=== PATIENT | female | born 1950 | race Caucasian/White ===

== ENCOUNTER 2018-07-26 10:31 | Emergency (ER) | payer MEDICARE, OTHER ==
[~2018-07-26] VITALS: Ht 167.6 cm; Wt 90.0 kg
[~2018-07-26 10:31] MED LIST: DIAZ2TAB PO; HYDR-4383 PO; ZOF4T PO
[2018-07-26 11:30] VITALS: BP 147/91
[2018-07-26] MEDS ORDERED: TRAM50TA2 PO (14:31)
== END 2018-07-26 15:07 | disposition home or self-care (01) ==
LOC: ER 10:32
DX: S83.92XA Sprain of unspecified site of left knee, initial encounter (principal); G89.29 Other chronic pain; W18.40XA Slipping, tripping and stumbling without falling, unspecified, initial encounter; Y93.01 Activity, walking, marching and hiking; Y92.89 Other specified places as the place of occurrence of the external cause; Y99.8 Other external cause status
CPT/HCPCS: 29505; 73560; 99283

== ENCOUNTER 2023-12-22 21:13 | Inpatient (IN) | payer MEDICARE, OTHER ==
[~2023-12-22] VITALS: Ht 165.1 cm; Wt 81.8 kg
[~2023-12-22 21:13] MED LIST changes: +ASPI-1 PO; +CHOL10002 PO; +CYAN100097 PO; +DENO60DI SQ; -DIAZ2TAB PO; +DOCU100T9 PO; +FAMO-128 PO; -HYDR-4383 PO; +LEVO175T2 PO; +VITA200C5 PO; -ZOF4T PO
[2023-12-22] MEDS ORDERED: morphine 4 MG/ML inj SYRINge IM ONE (23:10)
[2023-12-22] MEDS ORDERED: ondansetron 4mg rapidly disintigrating tab PO ONE (23:10)
[2023-12-22] MEDS: ondansetron/PF 4mg/2ml inj IV ONE (23:36)
[2023-12-22] MEDS: morphine 4 MG/ML inj SYRINge IV ONE (23:37)
[2023-12-22] MEDS: HYDROcodone/acetaminophen 5mg/325mg tablet PO ONE (23:48)
[2023-12-22] MEDS: ondansetron 4mg rapidly disintigrating tab PO ONE (23:48)
[2023-12-23 01:55] LABS: BASOPHILS % (AUTO) 0.3 % (0-1); EOSINOPHILS # (AUTO) 0.1 X10'3 (0-0.9); EOSINOPHILS % (AUTO) 1.3 % (0-6); HEMATOCRIT 30.5 % (35.0-45.0); LYMPHOCYTES # (AUTO) 1.9 X10'3 (1.1-4.8); LYMPHOCYTES % (AUTO) 38.3 % (21-51); MEAN CORPUSCULAR HEMOGLOBIN 32.1 PG (27.0-31.0); MEAN CORPUSCULAR HGB CONC 32.9 g/dL (33.0-36.5); MEAN CORPUSCULAR VOLUME 97.8 FL (78-98); MEAN PLATELET VOLUME 7.9 FL (7.4-10.4); MONOCYTES # (AUTO) 0.5 X10'3 (0-0.9); MONOCYTES % (AUTO) 9.5 % (2-12); NEUTROPHILS # (AUTO) 2.6 X10'3 (1.8-7.7); NEUTROPHILS % (AUTO) 50.6 % (42-75); PLATELET COUNT 239 X10'3 (140-440); RED BLOOD COUNT 3.12 X10'6 (4.20-5.60); RED CELL DISTRIBUTION WIDTH 14.2 % (11.5-14.5); WHITE BLOOD COUNT 5.1 X10'3 (4.5-11.0)
[2023-12-23 02:02] LABS: ALANINE AMINOTRANSFERASE 20 U/L (12-78); ALBUMIN 2.7 G/DL (3.4-5.0); ALBUMIN/GLOBULIN RATIO 0.7 (1.1-1.5); ALKALINE PHOSPHATASE 51 IU/L (46-116); ANION GAP 8 (8-16); ASPARTATE AMINO TRANSFERASE 22 U/L (10-37); BILIRUBIN,TOTAL 0.9 MG/DL (0.1-1.0); BLOOD UREA NITROGEN 19 MG/DL (7-18); BUN/CREATININE RATIO 30.2 (10.0-20.0); CHLORIDE 110 MMOL/L (99-107); CREATININE 0.63 MG/DL (0.40-0.90); GLUCOSE 87 MG/DL (70-104); POTASSIUM 3.2 MMOL/L (3.5-5.1); SODIUM 143 MMOL/L (135-145); TOTAL CARBON DIOXIDE 24.9 MMOL/L (24-32); TOTAL PROTEIN 6.7 G/DL (6.4-8.2); eCRCL 69 ML/MIN; eGFR > 90 ML/MIN
[2023-12-23] MEDS ORDERED: potassium Cl 20 mEq SR tablet PO PRN (02:05)
[2023-12-23] MEDS ORDERED: mag hydrox/Alum hydrox/simeth 30ml oral suspension PO PRN (02:05)
[2023-12-23] MEDS ORDERED: magnesium sulf-water 4G/100mL 100 ML IV PRN (02:05)
[2023-12-23] MEDS ORDERED: magnesium Cl slow-release 64mg tablet PO PRN (02:05)
[2023-12-23] MEDS ORDERED: acetaminophen 325mg tablet PO PRN (02:05)
[2023-12-23] MEDS ORDERED: potassium Cl 40MEQ/1/2NS 520ml 520 ML IV PRN (02:05)
[2023-12-23] MEDS ORDERED: ondansetron/PF 4mg/2ml inj IV PRN (02:05)
[2023-12-23] MEDS ORDERED: HYDROmorphone/PF 0.2 MG/ML SYRINGE IV PRN (02:05)
[2023-12-23] MEDS ORDERED: magnesium sulf-water 2g/50mL 50 ML IV PRN (02:05)
[2023-12-23] MEDS ORDERED: magnesium hydroxide 30ml (MOM) UD suspension PO PRN (02:05)
[2023-12-23 03:49] LABS: % IRON SATURATION 13 % (11-46); IRON 26 UG/DL (49-151); TOTAL IRON BINDING CAPACITY 199 UG/DL (259-388)
[2023-12-23 04:16] LABS: HEMOGLOBIN A1C 4.4 % (4.5-6.2)
[2023-12-23 04:32] LABS: CHOL/HDL RATIO 1.9 (0.00-4.99); CHOLESTEROL 111 MG/DL (0-200); HDL CHOLESTEROL 57 MG/DL (35-60); LDL CHOLESTEROL 48 MG/DL (50-100); MAGNESIUM 1.8 MG/DL (1.5-2.4); POTASSIUM 3.2 MMOL/L (3.5-5.1); THYROID STIMULATING HORMONE 1.15 ulU/ml (0.34-4.50); TRIGLYCERIDES 58 MG/DL (20-135)
[2023-12-23] MEDS: levoTHYROXINE 112mcg tablet PO SCH (07:13)
[2023-12-23] MEDS: levoTHYROXINE 25mcg tablet PO SCH (07:13)
[2023-12-23] MEDS: HYDROmorphone inj. 0.5 MG/0.5 ML DISP.SYRIN IV PRN (07:31)
[2023-12-23 07:45] VITALS: BP 117/68; PULSE 65; RESP 16; TEMP 98.3; O2SAT 91
[2023-12-23 08:00] VITALS: RESP 18; O2SAT 91
[2023-12-23] MEDS: K and/or MAG REPLACEMENT MC SCH (08:00)
[2023-12-23 10:33] VITALS: BP 114/64; PULSE 64; RESP 18; TEMP 97.4; O2SAT 91
[2023-12-23] MEDS: potassium Cl 20 mEq SR tablet PO PRN (11:28)
[2023-12-23 17:00] VITALS: BP 126/68; PULSE 70; RESP 16; TEMP 98.2; O2SAT 93
[2023-12-23 20:00] VITALS: RESP 16; O2SAT 93
[2023-12-23 22:00] VITALS: BP 100/52; PULSE 70; RESP 16; TEMP 97.2; O2SAT 93
[2023-12-24 05:00] VITALS: BP 92/44; PULSE 66; RESP 18; TEMP 97.4; O2SAT 94
[2023-12-24 06:30] LABS: BASOPHILS % (AUTO) 0.4 % (0-1); EOSINOPHILS # (AUTO) 0.1 X10'3 (0-0.9); EOSINOPHILS % (AUTO) 1.6 % (0-6); HEMATOCRIT 30.4 % (35.0-45.0); LYMPHOCYTES # (AUTO) 1.5 X10'3 (1.1-4.8); LYMPHOCYTES % (AUTO) 31.3 % (21-51); MEAN CORPUSCULAR HEMOGLOBIN 32.4 PG (27.0-31.0); MEAN CORPUSCULAR HGB CONC 32.9 g/dL (33.0-36.5); MEAN CORPUSCULAR VOLUME 98.7 FL (78-98); MEAN PLATELET VOLUME 7.8 FL (7.4-10.4); MONOCYTES # (AUTO) 0.4 X10'3 (0-0.9); NEUTROPHILS # (AUTO) 2.7 X10'3 (1.8-7.7); NEUTROPHILS % (AUTO) 57.7 % (42-75); PLATELET COUNT 230 X10'3 (140-440); RED BLOOD COUNT 3.08 X10'6 (4.20-5.60); WHITE BLOOD COUNT 4.7 X10'3 (4.5-11.0)
[2023-12-24 06:45] LABS: ALANINE AMINOTRANSFERASE 20 U/L (12-78); ALBUMIN 2.5 G/DL (3.4-5.0); ALBUMIN/GLOBULIN RATIO 0.7 (1.1-1.5); ALKALINE PHOSPHATASE 58 IU/L (46-116); ANION GAP 6 (8-16); ASPARTATE AMINO TRANSFERASE 18 U/L (10-37); BILIRUBIN,TOTAL 0.9 MG/DL (0.1-1.0); BLOOD UREA NITROGEN 14 MG/DL (7-18); BUN/CREATININE RATIO 26.4 (10.0-20.0); CALCIUM 7.8 MG/DL (8.5-10.1); CHLORIDE 108 MMOL/L (99-107); CREATININE 0.53 MG/DL (0.40-0.90); GLUCOSE 88 MG/DL (70-104); MAGNESIUM 1.9 MG/DL (1.5-2.4); POTASSIUM 4.2 MMOL/L (3.5-5.1); SODIUM 140 MMOL/L (135-145); TOTAL CARBON DIOXIDE 25.8 MMOL/L (24-32); TOTAL PROTEIN 6.3 G/DL (6.4-8.2); eCRCL 83 ML/MIN; eGFR > 90 ML/MIN
[2023-12-24 07:40] VITALS: RESP 18; O2SAT 94
[2023-12-24 10:00] VITALS: BP 128/56; PULSE 72; RESP 14; TEMP 97.7; O2SAT 96
[2023-12-24] MEDS: HYDROcodone/acetaminophen 5mg/325mg tablet PO PRN (13:23)
[2023-12-24 18:00] VITALS: BP 124/57; PULSE 73; RESP 14; TEMP 97.7; O2SAT 96
[2023-12-24 20:00] VITALS: RESP 18; O2SAT 96
[2023-12-24 22:00] VITALS: BP 125/56; PULSE 77; RESP 15; TEMP 98; O2SAT 95
[2023-12-25 05:57] LABS: BASOPHILS % (AUTO) 0.4 % (0-1); EOSINOPHILS # (AUTO) 0.1 X10'3 (0-0.9); EOSINOPHILS % (AUTO) 1.3 % (0-6); HEMATOCRIT 30.7 % (35.0-45.0); HEMOGLOBIN 10.1 g/dl (12.0-16.0); LYMPHOCYTES # (AUTO) 1.5 X10'3 (1.1-4.8); LYMPHOCYTES % (AUTO) 31.6 % (21-51); MEAN CORPUSCULAR HEMOGLOBIN 32.5 PG (27.0-31.0); MEAN CORPUSCULAR HGB CONC 32.9 g/dL (33.0-36.5); MEAN CORPUSCULAR VOLUME 98.7 FL (78-98); MONOCYTES # (AUTO) 0.5 X10'3 (0-0.9); MONOCYTES % (AUTO) 9.8 % (2-12); NEUTROPHILS # (AUTO) 2.7 X10'3 (1.8-7.7); NEUTROPHILS % (AUTO) 56.9 % (42-75); PLATELET COUNT 226 X10'3 (140-440); RED BLOOD COUNT 3.11 X10'6 (4.20-5.60); RED CELL DISTRIBUTION WIDTH 13.8 % (11.5-14.5); WHITE BLOOD COUNT 4.7 X10'3 (4.5-11.0)
[2023-12-25 06:00] VITALS: BP 112/46; PULSE 71; RESP 14; TEMP 97.6; O2SAT 95
[2023-12-25 06:31] LABS: ALANINE AMINOTRANSFERASE 20 U/L (12-78); ALBUMIN 2.4 G/DL (3.4-5.0); ALBUMIN/GLOBULIN RATIO 0.6 (1.1-1.5); ALKALINE PHOSPHATASE 61 IU/L (46-116); ANION GAP 5 (8-16); ASPARTATE AMINO TRANSFERASE 19 U/L (10-37); BILIRUBIN,TOTAL 0.8 MG/DL (0.1-1.0); BLOOD UREA NITROGEN 15 MG/DL (7-18); BUN/CREATININE RATIO 26.3 (10.0-20.0); CALCIUM 7.8 MG/DL (8.5-10.1); CHLORIDE 109 MMOL/L (99-107); CREATININE 0.57 MG/DL (0.40-0.90); GLUCOSE 92 MG/DL (70-104); POTASSIUM 4.1 MMOL/L (3.5-5.1); SODIUM 141 MMOL/L (135-145); TOTAL CARBON DIOXIDE 26.8 MMOL/L (24-32); TOTAL PROTEIN 6.3 G/DL (6.4-8.2); eCRCL 77 ML/MIN; eGFR > 90 ML/MIN
[2023-12-25 08:00] VITALS: RESP 14; O2SAT 93
[2023-12-25 10:00] VITALS: BP 110/48; PULSE 68; RESP 14; TEMP 97.7; O2SAT 93
[2023-12-25 11:02] VITALS: RESP 16
[2023-12-25] MEDS ORDERED: ACET-1008 PO (12:29)
[2023-12-25] MEDS ORDERED: HYDR-3965 PO (13:07)
== END 2023-12-25 13:28 | disposition home or self-care (01) | DRG 563 ==
LOC: ER 21:13 → ED HOLD 12-23 02:08 → EDBEDREQ 12-23 02:49 → ORTHO 4S 12-23 07:47
PROVIDERS: ADMIT Internal Medicine Critical Care Medicine; ATTEND Internal Medicine
DX: S82.144A Nondisplaced bicondylar fracture of right tibia, initial encounter for closed fracture (principal); E66.9 Obesity, unspecified; G89.29 Other chronic pain; R73.03 Prediabetes; D64.9 Anemia, unspecified; E88.09 Other disorders of plasma-protein metabolism, not elsewhere classified; E83.51 Hypocalcemia; M85.88 Other specified disorders of bone density and structure, other site; R01.1 Cardiac murmur, unspecified; E89.0 Postprocedural hypothyroidism; W01.0XXA Fall on same level from slipping, tripping and stumbling without subsequent striking against object, initial encounter; Z85.850 Personal history of malignant neoplasm of thyroid; Z68.30 Body mass index [BMI] 30.0-30.9, adult; Z90.710 Acquired absence of both cervix and uterus; Z98.84 Bariatric surgery status; Y93.89 Activity, other specified; Y92.89 Other specified places as the place of occurrence of the external cause; Y99.8 Other external cause status; Z90.722 Acquired absence of ovaries, bilateral; Z79.899 Other long term (current) drug therapy; Z79.82 Long term (current) use of aspirin
CPT/HCPCS: 36415; 71045; 73110; 73560; 73590; 73600; 73700; 80053; 80061; 83036; 83540; 83550; 83735; 84132; 84443; 84466; 85025; 87081; 93306; 97116; 97161; 99291; A6449; G0378; J1170

== ENCOUNTER 2024-02-07 09:23 | Inpatient (IN) | payer MEDICARE, OTHER ==
[~2024-02-07] VITALS: Ht 162.6 cm; Wt 74.3 kg
[~2024-02-07 09:23] MED LIST changes: +ACET-1008 PO
--- NOTE | 2024-02-07 09:45 | NUR ---
PT CAME STRAIGHT INTO TRIAGE. POA IS WITH THE PT. CN AWARE OF THE PT. PT PLACED IN 18. NO SITTER ASSIGNED TO THE PT AT THIS TIME. CN AWARE
[2024-02-07 09:50] LABS: BASOPHILS % (AUTO) 0.3 % (0-1); EOSINOPHILS # (AUTO) 0.1 X10'3 (0-0.9); EOSINOPHILS % (AUTO) 0.6 % (0-6); HEMATOCRIT 34.5 % (35.0-45.0); HEMOGLOBIN 11.4 g/dl (12.0-16.0); LYMPHOCYTES # (AUTO) 1.9 X10'3 (1.1-4.8); LYMPHOCYTES % (AUTO) 21.2 % (21-51); MEAN CORPUSCULAR HEMOGLOBIN 32.4 PG (27.0-31.0); MEAN CORPUSCULAR HGB CONC 32.9 g/dL (33.0-36.5); MEAN CORPUSCULAR VOLUME 98.4 FL (78-98); MEAN PLATELET VOLUME 7.6 FL (7.4-10.4); MONOCYTES # (AUTO) 0.6 X10'3 (0-0.9); MONOCYTES % (AUTO) 7.3 % (2-12); NEUTROPHILS # (AUTO) 6.2 X10'3 (1.8-7.7); NEUTROPHILS % (AUTO) 70.6 % (42-75); PLATELET COUNT 236 X10'3 (140-440); RED BLOOD COUNT 3.51 X10'6 (4.20-5.60); RED CELL DISTRIBUTION WIDTH 14.8 % (11.5-14.5); WHITE BLOOD COUNT 8.8 X10'3 (4.5-11.0)
[2024-02-07 10:09] LABS: ALBUMIN 2.7 G/DL (3.4-5.0); ANION GAP 11 (8-16); BLOOD UREA NITROGEN 28 MG/DL (7-18); BUN/CREATININE RATIO 43.1 (10.0-20.0); CALCIUM 8.3 MG/DL (8.5-10.1); CHLORIDE 111 MMOL/L (99-107); CREATININE 0.65 MG/DL (0.40-0.90); GLUCOSE 117 MG/DL (70-104); POTASSIUM 3.4 MMOL/L (3.5-5.1); PRO BRAIN NATRIURETIC PEPTIDE 191 PG/ML (0-450); SODIUM 142 MMOL/L (135-145); TOTAL CARBON DIOXIDE 20.5 MMOL/L (24-32); eCRCL 65 ML/MIN; eGFR 89 ML/MIN
[2024-02-07 10:31] LABS: ALANINE AMINOTRANSFERASE 16 U/L (12-78); ALBUMIN/GLOBULIN RATIO 0.6 (1.1-1.5); ALKALINE PHOSPHATASE 76 IU/L (46-116); ASPARTATE AMINO TRANSFERASE 28 U/L (10-37); BILIRUBIN,TOTAL 0.6 MG/DL (0.1-1.0); MAGNESIUM 1.7 MG/DL (1.5-2.4); TOTAL PROTEIN 7.4 G/DL (6.4-8.2)
[2024-02-07] MEDS: enoxaparin 40mg/0.4ml syringe SUBCUT ONE (10:38)
[2024-02-07] MEDS: normal saline 1000ml 1,000 ML IV SCH (10:39)
[2024-02-07] MEDS: enoxaparin 30mg/0.3ml syringe SUBCUT ONE (10:39)
[2024-02-07 10:43] LABS: BILIRUBIN,DIRECT 0.3 MG/DL (0-0.3)
[2024-02-07] MEDS: atorvastatin 20mg tablet PO SCH (10:46)
[2024-02-07 10:50] LABS: APTT 23 SECONDS (22-32); PROTHROMBIN TIME 10.8 SECONDS (9.0-12.0)
[2024-02-07] MEDS: magnesium sulf-water 2g/50mL 50 ML IV ONE (11:07)
[2024-02-07] MEDS ORDERED: mag hydrox/Alum hydrox/simeth 30ml oral suspension PO PRN (11:35)
[2024-02-07] MEDS ORDERED: potassium Cl 40MEQ/1/2NS 520ml 520 ML IV PRN (11:35)
[2024-02-07] MEDS ORDERED: ondansetron/PF 4mg/2ml inj IV PRN (11:35)
[2024-02-07] MEDS ORDERED: magnesium sulf-water 4G/100mL 100 ML IV PRN (11:35)
[2024-02-07] MEDS ORDERED: magnesium sulf-water 2g/50mL 50 ML IV PRN (11:35)
[2024-02-07] MEDS ORDERED: potassium Cl 20 mEq SR tablet PO PRN (11:35)
[2024-02-07] MEDS ORDERED: morphine 2 MG/ML inj. syringe IV PRN (11:35)
[2024-02-07] MEDS ORDERED: acetaminophen 325mg tablet PO PRN (11:35)
[2024-02-07 12:10] LABS: D-DIMER 5.42 MG/L FEU (0-0.50)
--- NOTE | 2024-02-07 12:23 | NUR ---
ER [id number] [id number] PAGE SENT TO DR THOMAS
[2024-02-07] MEDS ORDERED: heparin 10,000 units/1 ML INJ IV SCH (12:30)
[2024-02-07] MEDS ORDERED: heparin 10,000 units/1 ML INJ IV ONE (12:30)
--- NOTE | 2024-02-07 12:53 | NUR ---
INITIAL HEPARIN DRIP DOSING HEPARIN DRIP PROTOCOL INDICATION: CARDIAC PATIENT WEIGHT(KG): 74.3 KG BASE LINE aPTT: 23 BOLUS X1: 4000 UNIT INFUSION RATE: 900 UNIT/HR (9 ML/HR ) RN NAME: MITCHELL
[2024-02-07] MEDS: heparin 10,000 units/1 ML INJ IV ONE (12:58)
[2024-02-07] MEDS: MESSAGE TO NURSING IV ONE ×2 (13:01→19:30)
[2024-02-07] MEDS: heparin 25,000 UNIT/250ml bag 250 ML IV PRN (13:01)
[2024-02-07 13:43] LABS: BASOPHILS % (AUTO) 0.2 % (0-1); EOSINOPHILS % (AUTO) 0.1 % (0-6); HEMATOCRIT 34.7 % (35.0-45.0); HEMOGLOBIN 11.4 g/dl (12.0-16.0); LYMPHOCYTES # (AUTO) 1.1 X10'3 (1.1-4.8); LYMPHOCYTES % (AUTO) 14.1 % (21-51); MEAN CORPUSCULAR HEMOGLOBIN 32.5 PG (27.0-31.0); MEAN CORPUSCULAR HGB CONC 32.8 g/dL (33.0-36.5); MEAN CORPUSCULAR VOLUME 99.2 FL (78-98); MEAN PLATELET VOLUME 7.9 FL (7.4-10.4); MONOCYTES # (AUTO) 0.5 X10'3 (0-0.9); MONOCYTES % (AUTO) 5.8 % (2-12); NEUTROPHILS # (AUTO) 6.3 X10'3 (1.8-7.7); NEUTROPHILS % (AUTO) 79.8 % (42-75); PLATELET COUNT 257 X10'3 (140-440); RED CELL DISTRIBUTION WIDTH 14.6 % (11.5-14.5); WHITE BLOOD COUNT 7.9 X10'3 (4.5-11.0)
--- NOTE | 2024-02-07 16:56 | NUR ---
Patient in room ED 1. I have received report from Stephanie GUZMAN RN and had the opportunity to ask questions and assume patient care.
[2024-02-07 17:19] VITALS: BP 115/63; PULSE 102; RESP 26; TEMP 98.5; O2SAT 94
[2024-02-07 18:00] VITALS: BP 108/52; PULSE 104; RESP 18; TEMP 97.5; O2SAT 98
--- NOTE | 2024-02-07 18:54 | NUR ---
Problems reprioritized. Patient report given, questions answered & plan of care reviewed with Ramon SCHROEDER.
[2024-02-07] MEDS: K and/or MAG REPLACEMENT MC SCH (19:03)
[2024-02-07] MEDS: potassium Cl 20 mEq SR tablet PO PRN (19:22)
--- NOTE | 2024-02-07 19:26 | NUR ---
REVIEW OF HEPARIN DRIP DOSING HEPARIN DRIP PROTOCOL INDICATION: CARDIAC PATIENT WEIGHT(KG): 74.3KG APTT: 58 TIME COLLECTED: 1824 CURRENT RATE: 900UNITS/HR CHANGE IN INFUSION RATE: NO CHANGE RE- BOLUS: N/A RN NAME: KASSIE REPEAT APTT: 6HRS, KASSIE ORDERED FOR 1AM
[2024-02-07] MEDS ORDERED: heparin, porcine 5000 units/ml vial SQ SCH (20:00)
[2024-02-07] MEDS: acetaminophen 325mg tablet PO PRN (21:39)
[2024-02-07 22:00] VITALS: BP 97/52; PULSE 106; RESP 18; TEMP 98.5; O2SAT 97
[2024-02-08 01:39] LABS: BASOPHILS % (AUTO) 0.2 % (0-1); EOSINOPHILS % (AUTO) 0.4 % (0-6); HEMATOCRIT 31.9 % (35.0-45.0); HEMOGLOBIN 10.5 g/dl (12.0-16.0); LYMPHOCYTES # (AUTO) 1.8 X10'3 (1.1-4.8); LYMPHOCYTES % (AUTO) 24.3 % (21-51); MEAN CORPUSCULAR HEMOGLOBIN 32.6 PG (27.0-31.0); MEAN CORPUSCULAR VOLUME 98.7 FL (78-98); MEAN PLATELET VOLUME 7.9 FL (7.4-10.4); MONOCYTES # (AUTO) 0.6 X10'3 (0-0.9); MONOCYTES % (AUTO) 8.2 % (2-12); NEUTROPHILS % (AUTO) 66.9 % (42-75); PLATELET COUNT 238 X10'3 (140-440); RED BLOOD COUNT 3.23 X10'6 (4.20-5.60); RED CELL DISTRIBUTION WIDTH 14.5 % (11.5-14.5); WHITE BLOOD COUNT 7.4 X10'3 (4.5-11.0)
[2024-02-08 01:55] LABS: ANION GAP 6 (8-16); BLOOD UREA NITROGEN 29 MG/DL (7-18); BUN/CREATININE RATIO 54.7 (10.0-20.0); CALCIUM 7.8 MG/DL (8.5-10.1); CHLORIDE 112 MMOL/L (99-107); CREATININE 0.53 MG/DL (0.40-0.90); GLUCOSE 112 MG/DL (70-104); PHOSPHORUS 3.2 MG/DL (2.3-4.5); POTASSIUM 3.8 MMOL/L (3.5-5.1); SODIUM 141 MMOL/L (135-145); eCRCL 79 ML/MIN; eGFR > 90 ML/MIN
[2024-02-08 01:56] LABS: ALANINE AMINOTRANSFERASE 16 U/L (12-78); ALBUMIN 2.4 G/DL (3.4-5.0); ALBUMIN/GLOBULIN RATIO 0.6 (1.1-1.5); ALKALINE PHOSPHATASE 69 IU/L (46-116); ASPARTATE AMINO TRANSFERASE 24 U/L (10-37); BILIRUBIN,TOTAL 0.7 MG/DL (0.1-1.0); MAGNESIUM 1.8 MG/DL (1.5-2.4); TOTAL PROTEIN 6.3 G/DL (6.4-8.2)
[2024-02-08 02:00] VITALS: BP 95/60; PULSE 91; RESP 18; TEMP 98.1; O2SAT 97
[2024-02-08] MEDS: MESSAGE TO NURSING IV ONE ×4 (02:15→23:22)
[2024-02-08 06:00] VITALS: BP 90/53; PULSE 94; RESP 18; TEMP 97.7; O2SAT 96
[2024-02-08] MEDS: levoTHYROXINE 75mcg tablet PO SCH (07:36)
--- NOTE | 2024-02-08 09:53 | NUR ---
REVIEW OF HEPARIN DRIP DOSING HEPARIN DRIP PROTOCOL INDICATION: CARDIAC PATIENT WEIGHT(KG): 74.3 APTT: 53 TIME COLLECTED: 803 CURRENT RATE: 8 ML/HR CHANGE IN INFUSION RATE: NO CHANGE RE- BOLUS: NA RN NAME: FRANCISCO REPEAT APTT: IN 6 HOURS
[2024-02-08 11:00] VITALS: BP 113/56; PULSE 83; RESP 22; TEMP 97.6; O2SAT 95
[2024-02-08 15:00] VITALS: BP 118/68; PULSE 92; RESP 16; TEMP 97.6; O2SAT 95
--- NOTE | 2024-02-08 16:30 | NUR ---
REVIEW OF HEPARIN DRIP DOSING HEPARIN DRIP PROTOCOL INDICATION: CARDIAC PATIENT WEIGHT(KG): 74.3 APTT: 52 TIME COLLECTED: 1523 CURRENT RATE: 8 ML/HR CHANGE IN INFUSION RATE: NO CHANGE RE- BOLUS: NA RN NAME: FILI REPEAT APTT: IN 6 HOURS
[2024-02-08 18:00] VITALS: BP 129/67; PULSE 95; RESP 22; TEMP 98; O2SAT 95
[2024-02-08] MEDS: HALLS - SOOTHE MENTHOL 1.8 MG cough drop LOZENGE MM PRN (21:42)
[2024-02-08 22:00] VITALS: BP 116/70; PULSE 104; RESP 17; TEMP 97.8; O2SAT 97
--- NOTE | 2024-02-08 23:03 | NUR ---
REVIEW OF HEPARIN DRIP DOSING HEPARIN DRIP PROTOCOL INDICATION: ACS PATIENT WEIGHT(KG): 74.3 APTT:42 TIME COLLECTED: 2222 CURRENT RATE: 800 UNIT/HR CHANGE IN INFUSION RATE: 900 UNIT/HR RE- BOLUS:3000 UNIT RN NAME: REPEAT APTT: IN 6 HOURS
[2024-02-08] MEDS: heparin 10,000 units/1 ML INJ IV PRN (23:19)
[2024-02-09] VITALS (7 sets, daily range): BP systolic 100–131; BP diastolic 7–78; PULSE 86–103; RESP 16–26; TEMP 97.3–98; O2SAT 92–95
[2024-02-09] MEDS: nitroGLYCERIN 0.4mg SUBLingual tab SL PRN (01:47)
--- NOTE | 2024-02-09 01:50 | NUR ---
CHEST PAIN: 1) C/o of chest pain for the past 10mins 8-10. 2) Pain not radiating anywhere, no nausea, or vomiting. 3) GTN SL administered and awaiting effect. 4) EKG completed awaiting MD review
--- NOTE | 2024-02-09 01:54 | NUR ---
CHEST PAIN: 1) Second dose of GTN administered and awaiting effect. 2) Pain much better 3-/10. 3) Patient's non verbal sign - much more comfortable .
--- NOTE | 2024-02-09 02:03 | NUR ---
CHEST PAIN: 1) Pain score 1 after x3 GTN S/L. 2) Awaiting effect.
[2024-02-09] MEDS: morphine 2 MG/ML inj. syringe IV PRN (02:48)
--- NOTE | 2024-02-09 03:15 | NUR ---
CHEST PAIN: 1) Still c/o of chest pain, not radiating, no nausea, no vomiting, just slight headache. 2) Morphine 2mg iv administered with effect. 3) MD reviewed EKG - no obvious changes, and no new orders. 4) Will continue to review patient throughout the night accordingly.
[2024-02-09 06:10] LABS: BASOPHILS % (AUTO) 0.3 % (0-1); EOSINOPHILS % (AUTO) 0.2 % (0-6); HEMATOCRIT 28.7 % (35.0-45.0); HEMOGLOBIN 9.5 g/dl (12.0-16.0); LYMPHOCYTES # (AUTO) 1.4 X10'3 (1.1-4.8); LYMPHOCYTES % (AUTO) 24.2 % (21-51); MEAN CORPUSCULAR HEMOGLOBIN 32.4 PG (27.0-31.0); MEAN CORPUSCULAR VOLUME 98.2 FL (78-98); MONOCYTES # (AUTO) 0.5 X10'3 (0-0.9); MONOCYTES % (AUTO) 8.5 % (2-12); NEUTROPHILS % (AUTO) 66.8 % (42-75); PLATELET COUNT 229 X10'3 (140-440); RED BLOOD COUNT 2.92 X10'6 (4.20-5.60); RED CELL DISTRIBUTION WIDTH 13.9 % (11.5-14.5)
[2024-02-09 06:26] LABS: ALANINE AMINOTRANSFERASE 11 U/L (12-78); ALBUMIN 2.1 G/DL (3.4-5.0); ALBUMIN/GLOBULIN RATIO 0.6 (1.1-1.5); ALKALINE PHOSPHATASE 66 IU/L (46-116); ANION GAP 9 (8-16); ASPARTATE AMINO TRANSFERASE 20 U/L (10-37); BILIRUBIN,TOTAL 0.6 MG/DL (0.1-1.0); BLOOD UREA NITROGEN 16 MG/DL (7-18); BUN/CREATININE RATIO 27.1 (10.0-20.0); CALCIUM 7.5 MG/DL (8.5-10.1); CHLORIDE 111 MMOL/L (99-107); CREATININE 0.59 MG/DL (0.40-0.90); GLUCOSE 113 MG/DL (70-104); MAGNESIUM 1.7 MG/DL (1.5-2.4); PHOSPHORUS 2.8 MG/DL (2.3-4.5); POTASSIUM 3.8 MMOL/L (3.5-5.1); SODIUM 142 MMOL/L (135-145); TOTAL CARBON DIOXIDE 22.5 MMOL/L (24-32); TOTAL PROTEIN 5.9 G/DL (6.4-8.2); eCRCL 71 ML/MIN; eGFR > 90 ML/MIN
--- NOTE | 2024-02-09 06:27 | NUR ---
REVIEW OF HEPARIN DRIP DOSING HEPARIN DRIP PROTOCOL INDICATION: ACS PATIENT WEIGHT(KG):74.3 APTT:63 TIME COLLECTED: 0502 CURRENT RATE: 900 UNIT/HR CHANGE IN INFUSION RATE: 800 UNIT/HR RE- BOLUS:NA RN NAME: JOSE REPEAT APTT: IN 6 HOURS
[2024-02-09] MEDS: MESSAGE TO NURSING IV ONE ×2 (06:30→20:15)
--- NOTE | 2024-02-09 07:10 | NUR ---
Problems reprioritized. Patient report given, questions answered & plan of care reviewed with ELDA Olson
--- NOTE | 2024-02-09 15:00 | NUR ---
Dr. 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 Dr. Mosqueda gave okay for charge to call and place consult with Dr. Parra. Charge Completed and this nurse informed patient. Addendum: 02/09/24 at 1829 by Joselyn GRIFFITHS RN Dr. 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 Dr. Mosqueda gave okay for charge to call and place consult with Dr. Parra. Charge Completed and this nurse informed patient.
--- NOTE | 2024-02-09 15:57 | NUR ---
PAGER ID: [phone] MESSAGE: patient in room [address] [facility]. Gwen, do you want cardiac consult for her? is it Dr. Parra? or do you want to repeat troponins ? thank you Whitney [facility] [phone]
[2024-02-09] MEDS: guaiFENesin/DM 10ml UD oral syrup PO PRN (17:05)
--- NOTE | 2024-02-09 18:21 | NUR ---
REPORT FROM DAY STAFF: 1) Patient in room PCU 3023. I have received report from Whitney and Kay Alves and had the opportunity to ask questions and assume patient care. 2) Received report that MD Farfan consulted and stated that he is not librarian special collections, and Dr. Parra was the wrapper stemmer operator librarian special collections, WILMAR contacted MD Parra at 16:00hrs and no response. 3) Last PTT was at 13:00hrs - 46 and next PTT is timed at 19:0hrs. No further chest pains during day shift and Heparin running at 800U/hr. 4)
--- NOTE | 2024-02-09 18:48 | NUR ---
Problems reprioritized. Patient report given, questions answered & plan of care reviewed with Yessica.
--- NOTE | 2024-02-09 18:51 | NUR ---
consulted for cardiology and he is at bedside
--- NOTE | 2024-02-09 19:49 | NUR ---
REVIEW OF HEPARIN DRIP DOSING HEPARIN DRIP PROTOCOL INDICATION: CARDIAC PATIENT WEIGHT(KG): 74.3 KG APTT: 44 TIME COLLECTED: @1910 CURRENT RATE: 800 UNIT/HR CHANGE IN INFUSION RATE: INCREASE TO 900 UNIT/HR RE- BOLUS: 3000 UNIT RN NAME: MICHELLE REPEAT APTT: AFTER 6 HOURS
[2024-02-09] MEDS: guaiFENesin 200mg/20mg codeine phos 10ml UD oral syrup PO PRN (20:14)
[2024-02-10 02:00] VITALS: BP 114/69; PULSE 88; RESP 27; TEMP 98.4; O2SAT 95
[2024-02-10 03:03] LABS: ANION GAP 7 (8-16); BLOOD UREA NITROGEN 12 MG/DL (7-18); BUN/CREATININE RATIO 22.2 (10.0-20.0); CALCIUM 7.5 MG/DL (8.5-10.1); CHLORIDE 111 MMOL/L (99-107); CREATININE 0.54 MG/DL (0.40-0.90); GLUCOSE 109 MG/DL (70-104); MAGNESIUM 1.6 MG/DL (1.5-2.4); PHOSPHORUS 2.8 MG/DL (2.3-4.5); POTASSIUM 3.7 MMOL/L (3.5-5.1); SODIUM 141 MMOL/L (135-145); TOTAL CARBON DIOXIDE 23.1 MMOL/L (24-32); eCRCL 78 ML/MIN; eGFR > 90 ML/MIN
[2024-02-10 03:06] LABS: ALANINE AMINOTRANSFERASE 13 U/L (12-78); ALBUMIN/GLOBULIN RATIO 0.5 (1.1-1.5); ALKALINE PHOSPHATASE 68 IU/L (46-116); ASPARTATE AMINO TRANSFERASE 21 U/L (10-37); BASOPHILS % (AUTO) 0.3 % (0-1); BILIRUBIN,TOTAL 0.8 MG/DL (0.1-1.0); EOSINOPHILS % (AUTO) 0.7 % (0-6); HEMATOCRIT 28.4 % (35.0-45.0); HEMOGLOBIN 9.4 g/dl (12.0-16.0); LYMPHOCYTES # (AUTO) 1.9 X10'3 (1.1-4.8); LYMPHOCYTES % (AUTO) 28.3 % (21-51); MEAN CORPUSCULAR HEMOGLOBIN 32.6 PG (27.0-31.0); MEAN CORPUSCULAR HGB CONC 33.1 g/dL (33.0-36.5); MEAN CORPUSCULAR VOLUME 98.4 FL (78-98); MEAN PLATELET VOLUME 7.9 FL (7.4-10.4); MONOCYTES # (AUTO) 0.6 X10'3 (0-0.9); MONOCYTES % (AUTO) 9.7 % (2-12); PLATELET COUNT 232 X10'3 (140-440); RED BLOOD COUNT 2.88 X10'6 (4.20-5.60); RED CELL DISTRIBUTION WIDTH 14.1 % (11.5-14.5); WHITE BLOOD COUNT 6.6 X10'3 (4.5-11.0)
--- NOTE | 2024-02-10 03:19 | NUR ---
REVIEW OF HEPARIN DRIP DOSING HEPARIN DRIP PROTOCOL INDICATION: ACS PATIENT WEIGHT(KG): 74.3 APTT:54 TIME COLLECTED: 237 CURRENT RATE: 900 UNI/HR CHANGE IN INFUSION RATE: RE- BOLUS: NA RN NAME: MICHELLE REPEAT APTT: IN 6 HOURS
[2024-02-10] MEDS: MESSAGE TO NURSING IV ONE (03:47)
[2024-02-10 06:00] VITALS: BP 109/73; PULSE 84; RESP 20; TEMP 98.1; O2SAT 96
--- NOTE | 2024-02-10 06:37 | NUR ---
Problems reprioritized. Patient report given, questions answered & plan of care reviewed with RN Joselyn:
[2024-02-10 08:00] VITALS: RESP 20; O2SAT 96
[2024-02-10] MEDS: aspirin 81mg, enteric-coated 1 TAB TABLET.DR PO SCH (10:28)
[2024-02-10] MEDS: furosemide 20 MG/2 ML vial IV SCH (10:28)
[2024-02-10 11:00] VITALS: BP 107/53; PULSE 87; RESP 18; TEMP 98.4; O2SAT 92
[2024-02-10] MEDS ORDERED: LIDOcaine 1% (10mg/ml) 2ml vial ONE (12:22)
[2024-02-10] MEDS ORDERED: verapamil 2.5 mg/ml inj IV ONE (12:22)
[2024-02-10] MEDS ORDERED: iohexol 350 MG/ML 50ML vial IV ONE (12:23)
[2024-02-10] MEDS ORDERED: heparin 1,000unit/ml 10ml vial 10 ML ONE (12:23)
[2024-02-10] MEDS ORDERED: fentaNYL/PF 50MCG/1 ML 2ML syringe ONE (12:23)
[2024-02-10] MEDS ORDERED: midazolam 1 mg/ML 2ml injection ONE (12:23)
[2024-02-10] MEDS ORDERED: iohexol 350MG/ML 100ml bottle IV ONE (12:23)
[2024-02-10] MEDS ORDERED: nitroGLYCERIN 500mcg/5mL D5W 5 ML IV ONE (12:24)
[2024-02-10] MEDS: pantoprazole 40mg Tablet.DR PO SCH (14:19)
[2024-02-10 15:00] VITALS: BP 108/46; PULSE 94; RESP 13; TEMP 98.1; O2SAT 98
[2024-02-10] MEDS ORDERED: AMOX-419 PO (15:19)
[2024-02-10] MEDS: piperacillin/tazo 4.5gm/100ml 100 ML IV SCH (16:00)
--- NOTE | 2024-02-10 16:46 | NUR ---
started releasing air at 1430 and belt was removed at 1630 with no bleeding, patient is stable
[2024-02-10] MEDS ORDERED: FURO-150 PO (17:14)
[2024-02-10] MEDS ORDERED: ATOR20TA66 PO (17:15)
[2024-02-10] MEDS ORDERED: PANT40SU2 PO (17:27)
[2024-02-10] MEDS ORDERED: FERR325T28 PO (17:44)
--- NOTE | 2024-02-10 17:44 | NUR ---
patient got discharge at 1730, stable on discharge, education given on discharge, held ATB, iv removed with tip intact, tele box removed, pt. accompanied by family member ,
--- NOTE | 2024-02-10 17:56 | NUR ---
DRAWING IN HAND (richie) called stating change of treatment plan; ATB cancelled and furosemide added
== END 2024-02-10 17:50 | disposition left against medical advice (07) | DRG 205 ==
LOC: ER 09:23 → ED HOLD 11:49 → PCU 3S 17:15
PROVIDERS: ADMIT Internal Medicine; ATTEND Internal Medicine
PROC: 4A023N7 Measurement of Cardiac Sampling and Pressure, Left Heart, Percutaneous Approach (ICD-10-PCS; principal; 2024-02-10)
PROC: B2111ZZ Fluoroscopy of Multiple Coronary Arteries using Low Osmolar Contrast (ICD-10-PCS; 2024-02-10)
PROC: B2151ZZ Fluoroscopy of Left Heart using Low Osmolar Contrast (ICD-10-PCS; 2024-02-10)
DX: M94.0 Chondrocostal junction syndrome [Tietze] (principal); I21.A1 Myocardial infarction type 2; D63.8 Anemia in other chronic diseases classified elsewhere; E89.0 Postprocedural hypothyroidism; G89.29 Other chronic pain; M54.9 Dorsalgia, unspecified; Z96.611 Presence of right artificial shoulder joint; S82.891A Other fracture of right lower leg, initial encounter for closed fracture; I48.91 Unspecified atrial fibrillation; I08.0 Rheumatic disorders of both mitral and aortic valves; W18.39XA Other fall on same level, initial encounter; Y93.89 Activity, other specified; Y92.89 Other specified places as the place of occurrence of the external cause; Y99.8 Other external cause status; Z90.710 Acquired absence of both cervix and uterus; Z85.850 Personal history of malignant neoplasm of thyroid; Z98.84 Bariatric surgery status; Z79.82 Long term (current) use of aspirin; Z79.899 Other long term (current) drug therapy
CPT/HCPCS: 36415; 71045; 80048; 80053; 80076; 83735; 83880; 84100; 84145; 84484; 85025; 85379; 85610; 85730; 87081; 93005; 93308; 93458; 97116; 97162; 97530; 99152; 99153; 99291; A4615; C1769; C1894; G0378; J1644; J1650; J1940; J2250; J2270; J3010; J3490; J7030; Q9967